=== PATIENT | female | born 1970 | race Caucasian/White ===

== ENCOUNTER → 2021-07-20 | Outpatient (CLI) | payer BC | LOC: RAD 14:45 | PROVIDERS: ATTEND Internal Medicine | DX: Z12.31 Encounter for screening mammogram for malignant neoplasm of breast (principal) | CPT/HCPCS: 77063; 77067 ==

== ENCOUNTER → 2021-12-19 | Outpatient (CLI) | payer BC ==
--- NOTE | 2021-12-19 10:12 | Diagnostic Imaging Report ---
EXAMINATION: US Abdomen complete. TECHNIQUE: Multiple real-time grayscale images were obtained over the right upper quadrant in various projections. HISTORY: GENERALIZED ABD PAIN COMPARISON: None available. FINDINGS: Pancreas: The pancreas is nonvisualized secondary to overlying bowel gas. Liver: The liver is normal in echogenicity and contour. No focal lesions are seen. The portal vein is patent with hepatopetal flow. Gallbladder and biliary tree: Gallbladder is normal without wall thickening, pericholecystic fluid, or sonographic Richter sign. There is no biliary ductal dilation. The common duct measures 0.6 cm. Kidneys: The right kidney is normal without hydronephrosis. The left kidney is normal without hydronephrosis. Spleen: The spleen is normal. Aorta and IVC: The visualized aorta and inferior vena cava are normal. Fluid: No ascites is seen. IMPRESSION: 1. Unremarkable abdominal ultrasound. Dictated by: Dictated on workstation # [id number]
== END ==
LOC: RAD 09:00
PROVIDERS: ATTEND Internal Medicine
DX: R10.84 Generalized abdominal pain (principal)
CPT/HCPCS: 76700

== ENCOUNTER → 2022-01-03 | Outpatient (CLI) | payer BC ==
--- NOTE | 2022-01-03 18:48 | Diagnostic Imaging Report ---
INDICATION: Abdominal pain. EXAMINATION: Patient was administered 5.1 mCi technetium 99m Choletec and imaging over the abdomen was performed. FINDINGS: At 45 minutes 8 ounces of Ensure was ingested and gallbladder ejection fraction was calculated. Patient denied discomfort during the study. There is homogeneous uptake of activity by the liver with prompt excretion of activity into the common duct and gallbladder. There is normal passage of activity into the small bowel. Gallbladder ejection fraction is normal at 64%. IMPRESSION: Normal HIDA scan and gallbladder ejection fraction. Dictated by: Dictated on workstation # [id number]
== END ==
LOC: CARD 11:33
PROVIDERS: ATTEND Internal Medicine
DX: R10.84 Generalized abdominal pain (principal)
CPT/HCPCS: 78227; A9537

== ENCOUNTER → 2022-07-22 | Outpatient (CLI) | payer BC ==
--- NOTE | 2022-07-23 19:01 | Diagnostic Imaging Report ---
Indication: Routine screening. Comparison is made with prior mammograms from 07/20/2021 and 07/17/2020. 2-D and 3-D bilateral screening mammography was performed with CAD. Both breasts are heterogeneously dense, limiting the sensitivity of mammography. The parenchymal pattern appears to be stable. There are scattered benign calcifications. No spiculated mass or malignant-appearing microcalcifications are seen. Axillae are unremarkable. IMPRESSION: BI-RADS Category 2 No mammographic features suspicious for malignancy are identified. ACR BI-RADS Category 2: Benign findings. Result letter will be mailed to the patient. Note: At least 10% of breast cancer is not imaged by mammography. Dictated by: Dictated on workstation # [id number]
== END ==
LOC: RAD 14:30
PROVIDERS: ATTEND Internal Medicine
DX: Z12.31 Encounter for screening mammogram for malignant neoplasm of breast (principal)
CPT/HCPCS: 77063; 77067

== ENCOUNTER 2022-10-15 08:08 | Inpatient (IN) | payer BC ==
[~2022-10-15] VITALS: Ht 175.3 cm; Wt 119.0 kg
[~2022-10-15 08:08] MED LIST: ACETAMINOPHEN 325 MG TABLET PO PRN; ANTACID SUSP 30 ML UDC (MYLANTA) PO PRN; BISACODYL 10 MG SUPPOSITORY PR PRN; CALCIUM CARBONATE 500 MG CHEW TABLET PO PRN; ENOXAPARIN 40 MG/0.4 ML (LOVENOX) SYR SC SCH; HYDROmorphone 2 MG/ML VIAL (DILAUDID) IV PRN; LACTULOSE SYRUP 10GM/15ML (ENULOSE) 30ML UDC PO PRN; MELATONIN 3 MG TABLET PO PRN; MILK OF MAGNESIA 400 MG/5 ML 30 ML UDC PO PRN; ONDANSETRON 4 MG (ZOFRAN) ORAL DISSOLVE TAB PO PRN; ONDANSETRON 4 MG/2 ML (SDV) Z0FRAN IV PRN; PHARMACY TO DOSE IV SCH; PIPERACILLIN SODIUM/TAZOBACTAM 4.5 GM in NS (IVPB) 100 ML 100 ML IV ONE; diphenhydrAMINE 25 MG TAB (BENADRYL) PO PRN; diphenhydrAMINE 50 MG/ML INJ (BENADRYL) IVP PRN; guaiFENesin/CODEINE (ROBITUSSIN AC) 10ML UDC PO PRN; polyethylene glycoL POWDER 17 GM (MIRALAX) PACK PO PRN
[2022-10-15 08:23] VITALS: BP 138/67
[2022-10-15] MEDS ORDERED: HOLD METFORMIN - RECEIVED CONTRAST 20 ML VIAL IV SCH (09:15)
[2022-10-15] MEDS ORDERED: IOHEXOL 350 MG/ML 100 ML (OMNIPAQUE 350) VIAL IV ONE (09:15)
[2022-10-15] MEDS ORDERED: NS 100 ML (IVPB) BAG IV ONE (09:15)
[2022-10-15] MEDS: BENZONATATE 100 MG CAPSULE PO SCH ×3 (09:45→21:09)
[2022-10-15] MEDS: DOCUSATE SODIUM 100 MG (COLACE) CAP PO SCH ×2 (09:46→21:02)
[2022-10-15] MEDS: SENNOSIDES 8.6 MG (SENOKOT) TAB PO SCH ×2 (09:46→21:02)
[2022-10-15] MEDS: NS IV 1000 ML 1,000 ML IV SCH (09:49)
[2022-10-15 09:56] LABS: BASOPHILS % (AUTO) 0 % (0-10); EOSINOPHILS # (AUTO) 0.2 10^3/uL (0.0-0.3); EOSINOPHILS % (AUTO) 2 % (0-10); HEMATOCRIT 41 % (35-52); HEMOGLOBIN 13.9 g/dL (11.5-16.0); LYMPHOCYTES # (AUTO) 2.3 10^3/uL (1.0-4.0); LYMPHOCYTES % (AUTO) 21 % (12-44); MEAN CORPUSCULAR HEMOGLOBIN 30 pg (25-34); MEAN CORPUSCULAR HGB CONC 34 g/dL (32-36); MEAN CORPUSCULAR VOLUME 88 fL (80-99); MEAN PLATELET VOLUME 10.3 fL (9.0-12.2); MONOCYTES # (AUTO) 0.8 10^3/uL (0.0-1.0); MONOCYTES % (AUTO) 8 % (0-12); NEUTROPHILS # (AUTO) 7.3 10^3/uL (1.8-7.8); NEUTROPHILS % (AUTO) 69 % (42-75); PLATELET COUNT 360 10^3/uL (130-400); WHITE BLOOD COUNT 10.7 10^3/uL (4.3-11.0)
[2022-10-15] MEDS ORDERED: VANCOMYCIN 2000 MG/NS 500 ML IVPB IV NR ×2 (10:00)
[2022-10-15 10:13] LABS: ABG BASE EXCESS 4.9 MMOL/L (-2.5-2.5); ABG OXYGEN SATURATION 87 % (94-100); ABG PCO2 53 MMHG (35-45); ABG PH 7.37 (7.37-7.43); ABG PO2 51 MMHG (79-93); ABG TCO2 31.5 MMOL/L (21.0-31.0)
[2022-10-15 10:14] LABS: ALLENS TEST YES-POS; INSPIRED O2 ROOM AIR; PATIENT TEMP 36.7; VENTILATOR NO
[2022-10-15 10:15] LABS: ALANINE AMINOTRANSFERASE 10 U/L (0-55); ALBUMIN 3.5 GM/DL (3.2-4.5); ALKALINE PHOSPHATASE 65 U/L (40-136); BILIRUBIN,TOTAL 0.4 MG/DL (0.1-1.0); BUN/CREATININE RATIO 14; CARBON DIOXIDE 26 MMOL/L (21-32); CHLORIDE 101 MMOL/L (98-107); GFR ESTIMATED 104; GLUCOSE 91 MG/DL (70-105); POTASSIUM 4.3 MMOL/L (3.6-5.0); SODIUM 136 MMOL/L (135-145); TOTAL PROTEIN 6.2 GM/DL (6.4-8.2)
--- NOTE | 2022-10-15 10:59 | Diagnostic Imaging Report ---
Indication: Cough, shortness of breath Portable chest obtained at 0903 a.m. Comparison is made to ' 10/10/2022 Heart is normal in size. Mediastinal silhouette is unremarkable. There are chronic appearing increased interstitial markings. There is no acute consolidation or pneumothorax or pleural fluid. Impression: No acute process in the chest. Dictated by: Dictated on workstation # [id number]
[2022-10-15] MEDS ORDERED: PIPERACILLIN SODIUM/TAZOBACTAM 4.5 GM in NS (IVPB) 100 ML 100 ML IV NR (11:00)
--- NOTE | 2022-10-15 11:13 | Diagnostic Imaging Report ---
INDICATION: Shortness of breath. TECHNIQUE: Multiple contiguous axial images were obtained through the chest after uneventful bolus administration of intravenous contrast. 3D reconstructed CTA MIP acquisitions were also performed. Auto Exposure Controls were utilized during the CT exam to meet ALARA standards for radiation dose reduction. COMPARISON: There is no prior CTA for comparison. FINDINGS: The thoracic aorta shows no evidence of aneurysm or dissection. Great vessel origins are patent and without stenosis. Pulmonary parenchymal vessels are well opacified with no CT evidence of pulmonary emboli. There are no enlarged mediastinal nodes. There are some borderline-sized nodes in the right hilum, the largest measured about 1.3 cm. There is no pleural or pericardial fluid. Visualized portions of the upper abdomen were unremarkable. Lung parenchymal windows demonstrate some peribronchial thickening. There are tree-in-bud infiltrates visualized in the right lower lobe as well as a small focal area of consolidation. There is a nodular density in the right lower lobe measuring about 6 to 7 mm, best seen on image 79 of series 3. There is an area of consolidation in the right lower lobe more inferiorly. IMPRESSION: No CT evidence of pulmonary emboli or acute aortic pathology. No significant pleural fluid. Borderline-sized node in right hilum. There are tree-in-bud or micronodular infiltrates in the right lower lobe with some patchy infiltrates also seen in the left lower lobe. There is a small area of consolidation in the right lower lobe posteriorly. There is a 7 mm nodule in the right lower lobe, it is not clear if this is part of the same infectious process or a separate process. Would recommend follow-up per Fleischner criteria, with a follow-up CT in six months to ensure this resolves. Dictated by: Dictated on workstation # [id number]
[2022-10-15 11:25] VITALS: BP 144/86
[2022-10-15] MEDS: inSUlin ASPART (NovoLOG) 1 UNIT/0.01 ML (CHARGE PER UNIT) SC SCH ×3 (11:48→20:46)
[2022-10-15] MEDS: ENOXAPARIN 40 MG/0.4 ML (LOVENOX) SYR SC SCH (12:17)
[2022-10-15] MEDS ORDERED: FAMO20TA3 PO (12:53)
[2022-10-15] MEDS ORDERED: ESOM20CA37 PO (12:53)
[2022-10-15] MEDS ORDERED: BUPR-105 PO (12:53)
[2022-10-15] MEDS ORDERED: TRAZ150T72 PO (12:53)
[2022-10-15] MEDS ORDERED: ESCI20TA39 PO (12:53)
[2022-10-15] MEDS ORDERED: PREG100C55 PO (12:53)
[2022-10-15] MEDS ORDERED: CEFD300C3 PO (12:53)
[2022-10-15] MEDS ORDERED: LACT1CAP39 PO (12:53)
[2022-10-15] MEDS ORDERED: FLUC100T10 PO (12:53)
[2022-10-15] MEDS ORDERED: EST5V5 IM (12:53)
[2022-10-15] MEDS ORDERED: CNC1KV IM (12:53)
[2022-10-15] MEDS ORDERED: LOPE2TAB34 PO (12:53)
[2022-10-15] MEDS ORDERED: ONDA-106 PO (12:53)
[2022-10-15] MEDS ORDERED: METH-732 PO (12:53)
[2022-10-15] MEDS ORDERED: GABA800T10 PO (12:53)
--- NOTE | 2022-10-15 12:55 | History & Physical ---
SURINDER SANCHEZ 10/15/22 1255: History of Present Illness History of Present Illness Reason for visit/HPI Kanchan Loera is a 52yo F with past medical history of prediabetes, GERD, short bowel syndrome s/p right hemicolectomy, and depression who presents as a direct admission from Dr Mejia's clinic. She has a two week history of fever/chills, night sweats, shortness of breath, and cough. She has also experienced some mild nausea with one reported episode of emesis. Her and her do not recall being around any sick contacts. She took amoxicillin for [address] Mejia in clinic and being switched to cefdinir. She reports some mild improvement in her symptoms since starting the cefdinir. She had an xray as an outpatient last which showed 5 lobe interstitial opacities which will require further workup. Her cough is present during my interview and is productive of some light colored sputum. She does not have conversational dyspnea but has noted some shortness of breath over the last two weeks. Her fever has been under control since switching abx. She feels fatigued. Denies N/V today. Has chronic diarrhea related to short bowel syndrome from her R hemicolectomy. Denies any chest pain/ palpitations. Denies any peripheral edema. Date of Admission Oct 15, 2022 at 08:08 Date Seen by a Provider: Oct 15, 2022 Time Seen by a Provider: 09:20 I consulted on this patient on 10/15/22 12:40 Attending Physician Heather Mejia DO Admitting Physician Admitting Physician: Heather Mejia DO Attending Physician: Heather Mejia DO Consult Allergies and Home Medications Allergies Coded Allergies: NSAIDS (Non-Steroidal Anti-Inflamma (Verified Allergy, Unknown, 10/14/22) Patient Home Medication List Home Medication List Reviewed: Yes Bupropion HCl (Bupropion HCl Sr) 150 Mg Tablet.er, 150 MG PO BID, (Reported) Entered as Reported by: NIRMAL BEASLEY on 10/15/221252 Last Action: Continued Cefdinir (Cefdinir) 300 Mg Capsule, 300 MG PO BID, (Reported) Entered as Reported by: NIRMAL BEASLEY on 10/15/221252 Last Action: Held Cyanocobalamin (Cyanocobalamin Injection) 1,000 Mcg/Ml Inj, 1 ML IM MONTHLY, (Reported) Entered as Reported by: NIRMAL BEASLEY on 10/15/221252 Last Action: Held Escitalopram Oxalate (Escitalopram Oxalate) 20 Mg Tablet, 20 MG PO DAILY, (Reported) Entered as Reported by: NIRMAL BEASLEY on 10/15/221252 Last Action: Converted Esomeprazole Magnesium (Esomeprazole Magnesium) 20 Mg Capsule.dr, 20 MG PO BID, (Reported) Entered as Reported by: NIRMAL BEASLEY on 10/15/221252 Last Action: Converted Estradiol Cypionate (Depo-Estradiol) 5 Mg/Ml Inj, 1 ML IM MONTHLY, (Reported) Entered as Reported by: NIRMAL BEASLEY on 10/15/221252 Last Action: Held Famotidine (Acid Steel Fabricating Supervisor (FAMOTIDINE)) 20 Mg Tablet, 20 MG PO BID, (Reported) Entered as Reported by: NIRMAL BEASLEY on 10/15/221252 Last Action: Continued Fluconazole (Fluconazole) 100 Mg Tablet, 100 MG PO Q48H, (Reported) Entered as Reported by: NIRMAL BEASLEY on 10/15/221252 Last Action: Continued Gabapentin (Gabapentin) 800 Mg Tablet, 800 MG PO 1800,2200, (Reported) Entered as Reported by: NIRMAL BEASLEY on 10/15/221252 Last Action: Converted Lactobacillus Rhamnosus GG (Culturelle) 10 Billion Cell Capsule, 1 EACH PO BID, (Reported) Entered as Reported by: NIRMAL BEASLEY on 10/15/221252 Last Action: Converted Loperamide HCl (Loperamide) 2 Mg Tablet, Unknown Dose PO DAILY, (Reported) Entered as Reported by: NIRMAL BEASLEY on 10/15/221252 Last Action: Converted Methocarbamol (Methocarbamol) 750 Mg Tablet, 750 MG PO Q4H PRN for SPASMS, (Reported) Entered as Reported by: NIRMAL BEASLEY on 10/15/221252 Last Action: Continued Ondansetron HCl (Ondansetron HCl) 8 Mg Tablet, 8 MG PO Q8H PRN for NAUSEA/VOMITING-1ST LINE, (Reported) Entered as Reported by: NIRMAL BEASLEY on 10/15/221252 Last Action: Converted Pregabalin (Pregabalin) 100 Mg Capsule, 100 MG PO TID, (Reported) Entered as Reported by: NIRMAL BEASLEY on 10/15/22 125 Last Action: Continued Trazodone HCl (Trazodone HCl) 150 Mg Tablet, 300 MG PO HS, (Reported) Entered as Reported by: NIRMAL BEASLEY on 10/15/221252 Last Action: Continued Past Lmozgtn-Nnixmq-Lxeofm Hx Patient Social History Marrital Status: Tobacco Use?: No Smoking Status: Never a Smoker Smokeless Tobacco Frequency: Never a User Substance use?: No Alcohol Use?: No Pt feels they are or have been: No Current Status status: No status: No Advance Directives: Yes Communicates: Verbally Primary Language: Grenadian Preferred Spoken Language: Grenadian Is interpretation needed?: No Implanted or Applied Medical D: None Past Medical History Surgeries: Abdominal (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 and abscess formation), Hysterectomy, Tonsillectomy Chronic Diarrhea, Polyps (gastric polyps) Depression depression Family Medical History Heart Disease (a fib in mother), Hypertension, Other Conditions/Hx (father had parkinsons) Review of Systems Constitutional: chills, fever, weakness, weight loss EENTM: throat pain (improved); No hearing loss, No vision loss Respiratory: cough; No hemoptysis; short of breath; No wheezing Cardiovascular: No chest pain, No palpitations Gastrointestinal: No abdominal pain; diarrhea; No nausea, No vomiting Genitourinary: No dysuria, No hematuria Skin: No change in color Psychiatric/Neurological: Denies Headache, Denies Pre-Existing Deficit, Denies Tremors Physical Exam Vital Signs Vital Signs - First Documented 10/15/22 08:23 Temp 36.7 Pulse 86 Resp 18 B/P (MAP) 138/67 (90) Pulse Ox 91 O2 Delivery Nasal Cannula Capillary Refill : Height, Weight, BMI Height: '" Weight: lbs. oz. kg; 38.72 BMI Method: General Appearance: No Apparent Distress, WD/WN, Obese HEENT: PERRL/EOMI, Moist Mucous Membranes Neck: Supple; No JVD Respiratory: No Accessory Muscle Use, No Respiratory Distress, Crackles, Other (diffuse coarse breath sounds worse on R) Cardiovascular: Regular Rate, Rhythm, Normal Peripheral Pulses Gastrointestinal: Non Tender, Soft; No Distended Rectal: Deferred Extremity: Non Tender, No Pedal Edema Neurologic/Psychiatric: Alert, Oriented x3, Normal Mood/Affect Skin: Normal Color, Warm/Dry Assessment/Plan Assessment and Plan Acute hypoxic respiratory failure Fever Dyspnea Probable Pneumonia Productive cough CXR 10/10 showed 5 lobe interstitial opacities with no focal consolidation concerning for failure vs acute respiratory disease Recently treated with amoxicillin then cefdinir for presumed CAP Lactic acid normal at 0.64 WBC count normal at 10.7 afebrile since admission D dimer within normal limit CTA showed 7mm nodule in R lung with tree-in-bud infilitrates in the R lower lobe and small consolidation in the R lower lobe posteriorly. No evidence of PE. Fleishner criteria recommend follow up CT in 6 months for nodule BNP and troponins within normal limit Echo ordered for today- pending ABG showed compensated respiratory acidosis with elevated CO2 and HCO3. Hypoxic as well with O2 at 51 O2 saturation in mid 90s on room air, supplement via nasal cannula if needed Hx of PHIL but does not wear CPAP due to discomfort Started on vancomycin 2gm IV daily and zosyn 4.5gm IV q8hr for empiric coverage Blood and sputum cultures pending Flu A, Flu B, and covid panel pending Benzonatate for cough Decadron 4mg q12hr Albuterol TID continue singulair 10mg daily continue IV fluids Consult pulm appreciate recs S/P R hemicolectomy Short bowel syndrome regular diet as tolerated electrolytes wnl continue IVF Diet- regular DVT ppx- lovenox Code status- full HEATHER MEJIA DO 10/16/22 0536: Allergies and Home Medications Allergies Coded Allergies: NSAIDS (Non-Steroidal Anti-Inflamma (Verified Allergy, Unknown, 10/14/22) Patient Home Medication List Bupropion HCl (Bupropion HCl Sr) 150 Mg Tablet.er, 150 MG PO BID, (Reported) Entered as Reported by: NIRMAL BEASLEY on 10/15/221252 Last Action: Continued Cefdinir (Cefdinir) 300 Mg Capsule, 300 MG PO BID, (Reported) Entered as Reported by: NIRMAL BEASLEY on 10/15/221252 Last Action: Held Cyanocobalamin (Cyanocobalamin Injection) 1,000 Mcg/Ml Inj, 1 ML IM MONTHLY, (Reported) Entered as Reported by: NIRMAL BEASLEY on 10/15/221252 Last Action: Held Escitalopram Oxalate (Escitalopram Oxalate) 20 Mg Tablet, 20 MG PO DAILY, (Reported) Entered as Reported by: NIRMAL BEASLEY on 10/15/221252 Last Action: Converted Esomeprazole Magnesium (Esomeprazole Magnesium) 20 Mg Capsule.dr, 20 MG PO BID, (Reported) Entered as Reported by: NIRMAL BEASLEY on 10/15/221252 Last Action: Converted Estradiol Cypionate (Depo-Estradiol) 5 Mg/Ml Inj, 1 ML IM MONTHLY, (Reported) Entered as Reported by: NIRMAL BEASLEY on 10/15/221252 Last Action: Held Famotidine (Acid Steel Fabricating Supervisor (FAMOTIDINE)) 20 Mg Tablet, 20 MG PO BID, (Reported) Entered as Reported by: NIRMAL BEASLEY on 10/15/221252 Last Action: Continued Fluconazole (Fluconazole) 100 Mg Tablet, 100 MG PO Q48H, (Reported) Entered as Reported by: NIRMAL BEASLEY on 10/15/221252 Last Action: Continued Gabapentin (Gabapentin) 800 Mg Tablet, 800 MG PO 1800,2200, (Reported) Entered as Reported by: NIRMAL BEASLEY on 10/15/221252 Last Action: Converted Lactobacillus Rhamnosus GG (Culturelle) 10 Billion Cell Capsule, 1 EACH PO BID, (Reported) Entered as Reported by: NIRMAL BEASLEY on 10/15/221252 Last Action: Converted Loperamide HCl (Loperamide) 2 Mg Tablet, Unknown Dose PO DAILY, (Reported) Entered as Reported by: NIRMAL BEASLEY on 10/15/221252 Last Action: Converted Methocarbamol (Methocarbamol) 750 Mg Tablet, 750 MG PO Q4H PRN for SPASMS, (Reported) Entered as Reported by: NIRMAL BEASLEY on 10/15/221252 Last Action: Continued Ondansetron HCl (Ondansetron HCl) 8 Mg Tablet, 8 MG PO Q8H PRN for NAUSEA/VOMITING-1ST LINE, (Reported) Entered as Reported by: NIRMAL BEASLEY on 10/15/221252 Last Action: Converted Pregabalin (Pregabalin) 100 Mg Capsule, 100 MG PO TID, (Reported) Entered as Reported by: NIRMAL BEASLEY on 10/15/221252 Last Action: Continued Trazodone HCl (Trazodone HCl) 150 Mg Tablet, 300 MG PO HS, (Reported) Entered as Reported by: NIRMAL BEASLEY on 10/15/22 1253 Last Action: Continued Assessment/Plan Assessment and Plan Problems: (1) Pulmonary infiltrates Admission Diagnosis Admission Status: Observation Supervisory-Addendum Brief Verification & Attestation Participated in pt care: history, MDM, physical Personally performed: exam, history, MDM, supervision of care Care discussed with: Medical Student Procedures: n/a Results interpretation: Verified all documentation Verification and Attestation of Medical Student E/M Service A medical student performed and documented this service in my presence. I reviewed and verified all information documented by the medical student and made modifications to such information, when appropriate. I personally performed the physical exam and medical decision making. Heather Mejia, Oct 16, 2022,05:36 SURINDER SANCHEZ Oct 15, 2022 12:55 HEATHER MEJIA DO Oct 16, 2022 05:36
[2022-10-15] MEDS: RT-ALBUTEROL SULF 2.5 MG/3 ML PRE-MIX VIAL INH SCH ×2 (15:20→21:20)
[2022-10-15 15:26] VITALS: BP 130/63
[2022-10-15] MEDS: PIPERACILLIN SODIUM/TAZOBACTAM 4.5 GM in NS (IVPB) 100 ML 100 ML IV SCH (16:05)
[2022-10-15 19:50] VITALS: BP 127/61
[2022-10-15] MEDS ORDERED: fluCOnazole (DIFLUCAN) 100 MG TAB PO SCH (20:45)
[2022-10-15] MEDS ORDERED: LOPERAMIDE 2 MG (IMODIUM) TABLET PO PRN (20:45)
[2022-10-15] MEDS ORDERED: METHOCARBAMOL 750 MG (ROBAXIN) TAB PO PRN (20:45)
[2022-10-15] MEDS ORDERED: traZODone 150 MG (DESYREL) TABLET PO SCH (21:00)
[2022-10-15] MEDS ORDERED: buPROPion SR 150 MG TABLET PO SCH (21:00)
[2022-10-15] MEDS ORDERED: FAMOTIDINE 20 MG (PEPCID) TABLET PO SCH (21:00)
[2022-10-15] MEDS: MONTELUKAST 10 MG (SINGULAIR) TAB PO SCH ×2 (21:09→21:15)
[2022-10-15] MEDS: PREGABALIN 100 MG (LYRICA) CAPSULE PO SCH (21:11)
[2022-10-15] MEDS: GABAPENTIN 400 MG (NEURONTIN) CAP PO SCH (21:15)
[2022-10-15] MEDS ORDERED: ONDANSETRON 4 MG (ZOFRAN) ORAL DISSOLVE TAB PO PRN (22:00)
[2022-10-15] MEDS: VANCOMYCIN 1500MG/300ML PREMIX IV SCH (22:08)
[2022-10-15 23:25] VITALS: BP 118/72
[2022-10-16] MEDS: NS IV 1000 ML 1,000 ML IV SCH (01:38)
[2022-10-16] MEDS: PIPERACILLIN SODIUM/TAZOBACTAM 4.5 GM in NS (IVPB) 100 ML 100 ML IV SCH ×3 (01:39→16:12)
[2022-10-16 03:10] VITALS: BP 134/81
[2022-10-16] MEDS: inSUlin ASPART (NovoLOG) 1 UNIT/0.01 ML (CHARGE PER UNIT) SC SCH ×4 (06:14→20:41)
[2022-10-16 06:22] LABS: BASOPHILS % (AUTO) 0 % (0-10); EOSINOPHILS % (AUTO) 0 % (0-10); HEMATOCRIT 39 % (35-52); HEMOGLOBIN 13.2 g/dL (11.5-16.0); LYMPHOCYTES # (AUTO) 1.1 10^3/uL (1.0-4.0); LYMPHOCYTES % (AUTO) 12 % (12-44); MEAN CORPUSCULAR HEMOGLOBIN 30 pg (25-34); MEAN CORPUSCULAR HGB CONC 34 g/dL (32-36); MEAN CORPUSCULAR VOLUME 89 fL (80-99); MEAN PLATELET VOLUME 10.9 fL (9.0-12.2); MONOCYTES # (AUTO) 0.2 10^3/uL (0.0-1.0); MONOCYTES % (AUTO) 2 % (0-12); NEUTROPHILS % (AUTO) 86 % (42-75); PLATELET COUNT 348 10^3/uL (130-400); WHITE BLOOD COUNT 9.3 10^3/uL (4.3-11.0)
[2022-10-16 06:37] LABS: ALBUMIN 3.4 GM/DL (3.2-4.5); POTASSIUM 4.8 MMOL/L (3.6-5.0)
[2022-10-16 06:39] LABS: CALCIUM 8.8 MG/DL (8.5-10.1)
[2022-10-16 06:42] LABS: BILIRUBIN,TOTAL 0.3 MG/DL (0.1-1.0)
[2022-10-16 06:43] LABS: CREATININE SERUM 0.63 MG/DL (0.60-1.30)
[2022-10-16] MEDS ORDERED: PATIENT MAY USE OWN MEDS, ALL MC SCH (07:00)
[2022-10-16] MEDS ORDERED: PANTOPRAZOLE 20 MG TABLET (PROTONIX) PO SCH (07:00)
[2022-10-16] MEDS: RT-ALBUTEROL SULF 2.5 MG/3 ML PRE-MIX VIAL INH SCH ×3 (07:55→21:15)
[2022-10-16 08:00] VITALS: BP 139/74
[2022-10-16] MEDS ORDERED: Lactobacillus Rhamnosus GG (CULTURELLE) packet PO SCH (08:00)
[2022-10-16] MEDS: DOCUSATE SODIUM 100 MG (COLACE) CAP PO SCH ×2 (08:42→20:46)
[2022-10-16] MEDS: BENZONATATE 100 MG CAPSULE PO SCH ×3 (08:42→20:41)
[2022-10-16] MEDS: SENNOSIDES 8.6 MG (SENOKOT) TAB PO SCH ×2 (08:42→20:46)
[2022-10-16] MEDS: PREGABALIN 100 MG (LYRICA) CAPSULE PO SCH ×4 (08:43→20:54)
[2022-10-16] MEDS: FAMOTIDINE 20 MG (PEPCID) TABLET PO SCH ×2 (08:44→20:45)
[2022-10-16] MEDS ORDERED: ONDANSETRON 8 MG PO PRN (08:45)
[2022-10-16] MEDS ORDERED: ESCITALOPRAM 20MG TABLET PO SCH (09:00)
[2022-10-16] MEDS: buPROPion SR 150 MG TABLET PO SCH ×2 (09:10→20:46)
[2022-10-16] MEDS: ESCITALOPRAM 20MG TABLET PO SCH (09:11)
[2022-10-16] MEDS: VANCOMYCIN 1500MG/300ML PREMIX IV SCH ×2 (09:40→22:10)
--- NOTE | 2022-10-16 10:02 | Progress Note ---
SURINDER SACNHEZ 10/16/22 1002: Subjective Date Seen by a Provider: Oct 16, 2022 Time Seen by a Provider: 09:57 Subjective/Events-last exam Patient seen and examined at bedside. She is sitting up in bed comfortably. She reports feeling much better today. She still has intermittent cough but is produ cing less sputum and is less frequent. She denies any fever, chills, or night sweats. She denies any pain besides chronic knee pain associated with arthritis. She is on 4L by nasal cannula and denies shortness of breath. Does not wear O2 at home. Has had diarrhea in the hospital that is consistent with her short bowel syndrome related to R hemicolectomy, no changes. Denies any chest pain or palpitations. Review of Systems General: No Chills, No Night Sweats HEENT: No Head Aches, No Visual Changes Pulmonary: Dyspnea (improved), Cough (improved); No Pleuritic Chest Pain Cardiovascular: No: Chest Pain, Palpitations Gastrointestinal: Diarrhea; No: Nausea, Vomiting, Abdominal Pain Genitourinary: No Dysuria, No Hematuria Musculoskeletal: leg pain Neurological: No: Weakness, Change in speech, Confusion Focused Exam Lactate Level 10/15/22 10:55: Lactic Acid Level 0.64 Objective Exam Last Set of Vital Signs Vital Signs Date Time Temp Pulse Resp B/P (MAP) Pulse Ox O2 Delivery O2 Flow Rate FiO2 10/16/22 08:11 97 Nasal Cannula 4.00 10/16/22 08:00 36.0 66 20 139/74 (95) Capillary Refill : I&O Intake and Output 10/16/22 00:00 Intake Total 1800 ml Balance 1800 ml Intake Oral 1800 ml # Voids 8 # Bowel Movements 1 Daily Weight Change Yes, 2-13 lbs General: Alert, Oriented X3, Cooperative HEENT: Atraumatic, EOMI Neck: Supple, No JVD Lungs: Other (Coarse sounds bilaterally, worse on R. Improved somewhat since yesterday's exam) Heart: Regular Rate, Normal S1, Normal S2 Abdomen: Soft, No Tenderness Extremities: No Cyanosis, No Edema Neuro: Normal Speech Psych/Mental Status: Mental Status NL, Mood NL Results Lab Laboratory Tests 10/15/22 10:10: Blood Gas Puncture Site RT RAD, Blood Gas Patient Temperature 36.7, Arterial Blood pH 7.37, Arterial Blood Partial Pressure CO2 53H, Arterial Blood Partial Pressure O2 51L, Arterial Blood HCO3 30H, Arterial Blood Total CO2 31.5H, Arterial Blood Oxygen Saturation 87L, Arterial Blood Base Excess 4.9H, Kamar Test YES-POS, Blood Gas Ventilator Setting NO, Blood Gas Inspired Oxygen ROOM AIR 10/15/22 10:55: Lactic Acid Level 0.64 10/15/22 11:29: Glucometer 103 10/15/22 11:30: Influenza Type A (RT-PCR) Not Detected, Influenza Type B (RT-PCR) Not Detected, SARS-CoV-2 RNA (RT-PCR) Not Detected 10/15/22 15:38: Glucometer 156H 10/15/22 20:02: Glucometer 149H 10/16/22 05:30: White Blood Count 9.3, Red Blood Count 4.38, Hemoglobin 13.2, Hematocrit 39, Mean Corpuscular Volume 89, Mean Corpuscular Hemoglobin 30, Mean Corpuscular Hemoglobin Concent 34, Red Cell Distribution Width 12.6, Platelet Count 348, Mean Platelet Volume 10.9, Immature Granulocyte % (Auto) 1, Neutrophils (%) (Auto) 86H, Lymphocytes (%) (Auto) 12, Monocytes (%) (Auto) 2, Eosinophils (%) (Auto) 0, Basophils (%) (Auto) 0, Neutrophils # (Auto) 8.0H, Lymphocytes # (Auto) 1.1, Monocytes # (Auto) 0.2, Eosinophils # (Auto) 0.0, Basophils # (Auto) 0.0, Immature Granulocyte # (Auto) 0.1, Sodium Level 140, Potassium Level 4.8, Chloride Level 107, Carbon Dioxide Level 24, Anion Gap 9, Blood Urea Nitrogen 7, Creatinine 0.63, Estimat Glomerular Filtration Rate 107, BUN/Creatinine Ratio 11, Glucose Level 145H, Calcium Level 8.8, Corrected Calcium 9.3, Total Bilirubin 0.3, Aspartate Amino Transf (AST/SGOT) 12, Alanine Aminotransferase (ALT/SGPT) 11, Alkaline Phosphatase 65, Total Protein 6.0L, Albumin 3.4 10/16/22 05:58: Glucometer 137H Microbiology 10/15/22 MRSA Screen - Final, Complete MRSA not isolated Assessment/Plan Assessment/Plan Assess & Plan/Chief Complaint Acute hypoxic respiratory failure Fever Dyspnea Probable Pneumonia Productive cough CXR 10/10 showed 5 lobe interstitial opacities with no focal consolidation concerning for failure vs acute respiratory disease Repeat CXR today Recently treated with amoxicillin then cefdinir for presumed CAP Lactic acid normal at 0.64 WBC count normal at 9.3 afebrile since admission D dimer within normal limit CTA showed 7mm nodule in R lung with tree-in-bud infilitrates in the R lower lobe and small consolidation in the R lower lobe posteriorly. No evidence of PE. Fleischner criteria recommend follow up CT in 6 months for nodule BNP and troponins within normal limit Echocardiogram revealed LV EF of 55-60% with L atrial dilation and pulmonary artery pressure of 25-30 ABG showed compensated respiratory acidosis with elevated CO2 and HCO3. Hypoxic as well with O2 at 51 O2 saturation in mid 90s on 4L by nasal cannula, wean as tolerated. Does not use O2 at home Hx of PHIL but does not wear CPAP due to discomfort Started on vancomycin 2gm IV daily and zosyn 4.5gm IV q8hr for empiric coverage Pharmacy dosed vancomycin at 1500mg q12hr IV, trough pending Blood and sputum cultures pending Sputum showed presence of WBCs but no bacteria identified Flu A, Flu B, and covid panel negative Benzonatate for cough Decadron 4mg q12hr Albuterol TID continue singulair 10mg daily Consult pulm appreciate recs Will do overnight continuous pulse ox as well as home O2 evaluation Mycoplasma abs pending for atypical pneumonia Repeat ABG S/P R hemicolectomy Short bowel syndrome regular diet as tolerated electrolytes wnl Diet- regular DVT ppx- lovenox Code status- full Clinical Quality Measures Admission Status Admission Dx Acute hypoxic respiratory failure Fever Dyspnea Probable Pneumonia Productive cough CXR 10/10 showed 5 lobe interstitial opacities with no focal consolidation concerning for failure vs acute respiratory disease Recently treated with amoxicillin then cefdinir for presumed CAP Lactic acid normal at 0.64 WBC count normal at 10.7 afebrile since admission D dimer within normal limit CTA showed 7mm nodule in R lung with tree-in-bud infilitrates in the R lower lobe and small consolidation in the R lower lobe posteriorly. No evidence of PE. Fleishner criteria recommend follow up CT in 6 months for nodule BNP and troponins within normal limit Echo ordered for today- pending ABG showed compensated respiratory acidosis with elevated CO2 and HCO3. Hypoxic as well with O2 at 51 O2 saturation in mid 90s on room air, supplement via nasal cannula if needed Hx of PHIL but does not wear CPAP due to discomfort Started on vancomycin 2gm IV daily and zosyn 4.5gm IV q8hr for empiric coverage Blood and sputum cultures pending Flu A, Flu B, and covid panel pending Benzonatate for cough Decadron 4mg q12hr Albuterol TID continue singulair 10mg daily continue IV fluids Consult pulm appreciate recs S/P R hemicolectomy Short bowel syndrome regular diet as tolerated electrolytes wnl continue IVF Diet- regular DVT ppx- lovenox Code status- full HEATHER MEJIA DO 10/16/224: Supervisory-Addendum Brief Verification & Attestation Participated in pt care: history, MDM, physical Personally performed: exam, history, MDM, supervision of care Care discussed with: Medical Student Procedures: n/a Results interpretation: Verified all documentation Verification and Attestation of Medical Student E/M Service A medical student performed and documented this service in my presence. I reviewed and verified all information documented by the medical student and made modifications to such information, when appropriate. I personally performed the physical exam and medical decision making. Heather Mejia Oct 16, 2022,21:42 SURINDER SANCHEZ Oct 16, 2022 10:02 HEATHER MEJIA DO Oct 16, 2022 21:44
[2022-10-16] MEDS: ENOXAPARIN 40 MG/0.4 ML (LOVENOX) SYR SC SCH (11:10)
[2022-10-16 11:46] VITALS: BP 140/63
--- NOTE | 2022-10-16 13:05 | Diagnostic Imaging Report ---
EXAMINATION: Chest, one view. HISTORY: Pneumonia. COMPARISON: 10/15/2022. FINDINGS: The lungs are clear without edema or pneumonia. No pleural effusion or pneumothorax. Heart size is normal. IMPRESSION: 1. Clear lungs. Dictated by: Dictated on workstation # [id number]
--- NOTE | 2022-10-16 14:23 | Pulmonary Consultation ---
History of Present Illness History of Present Illness Date Seen by Provider: Oct 16, 2022 Time Seen by Provider: 13:36 Date of Admission History of Present Illness (Tele-pulmonary Physician , consultation as per request of PCP Service provided via interactive audio and video telecommunications [employer] system to a patient admitted to [facility]. 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 then seen MD ? omnicef stated and she felt better - no fever , chills better , cough was still present and rhonchi in lungs and hypoxia ? cxr was done and patient was admitted OTHER RESPIRATORY : Negative for sputum, hemoptysis, stridor, nasal congestion, trouble swallowing, PND, cough with PO intake , symptoms of MARCIE CXR and 10/15 -interstitial opacities CT chest tree-in-bud infiltrates / consolidation in the RLL ECHO 10/15/22 -EF WNL , no pulm HTN Inpatient - Started on vancomycin 2gm IV daily and zosyn and steroids IV Dexa 4 q 12 Today AFEBRILE, reports feeling better today A/P Viral syndrome with progression to most likely infection bronchiolitis -CT findings of RLL infiltrate and tree-in bud can be consistent with aspiration, less likely TB given history. Also can be seen with hyper sensitivity pneumonitis - less likely , but can not be r/o. -Agree with current abx -Agree with iv steroids for 2 days - then can titrate down , and start ICS -Monitor for VO , GERD , control cough PRN -Bronchoscopy is not is indicated now -Close f/up Mild CO2 retention on ABG ( possible due to untreated PHIL ) RLL infiltrate to follow with Ct in 3-6 month Discussed with patient the medical regiment, goals, side effects and symptoms. All questions were answered. is in the room for the conversation Plans in collaboration with bedside consultants and IM MDs. Discussed with RN to reach out if any questions or concerns Allergies and Home Medications Allergies Coded Allergies: NSAIDS (Non-Steroidal Anti-Inflamma (Verified Allergy, Unknown, 10/14/22) Home Medications Bupropion HCl 150 Mg Tablet.er, 150 MG PO BID, (Reported) Cefdinir 300 Mg Capsule, 300 MG PO BID, (Reported) FILLED 10-10-2022 #14/ DAY SUPPLY Cyanocobalamin 1,000 Mcg/Ml Inj, 1 ML IM MONTHLY, (Reported) Escitalopram Oxalate 20 Mg Tablet, 20 MG PO DAILY, (Reported) Esomeprazole Magnesium 20 Mg Capsule.dr, 20 MG PO BID, (Reported) Estradiol Cypionate 5 Mg/Ml Inj, 1 ML IM MONTHLY, (Reported) Famotidine 20 Mg Tablet, 20 MG PO BID, (Reported) Fluconazole 100 Mg Tablet, 100 MG PO Q48H, (Reported) FILLED 10-10-2022 #10 DAY SUPPLY Gabapentin 800 Mg Tablet, 800 MG PO 1800,2200, (Reported) Lactobacillus Rhamnosus GG 10 Billion Cell Capsule, 1 EACH PO BID, (Reported) Loperamide HCl 2 Mg Tablet, Unknown Dose PO DAILY, (Reported) TAKES 67 TABS ONCE DAILY Methocarbamol 750 Mg Tablet, 750 MG PO Q4H PRN for SPASMS, (Reported) Ondansetron HCl 8 Mg Tablet, 8 MG PO Q8H PRN for NAUSEA/VOMITING-1ST LINE, (Reported) Pregabalin 100 Mg Capsule, 100 MG PO TID, (Reported) Trazodone HCl 150 Mg Tablet, 300 MG PO HS, (Reported) TAKES 2 (150MG) TABS Past Medical/Social/Family Hx Patient Social History Marrital Status: Tobacco Use?: No Smoking Status: Never a Smoker Smokeless Tobacco Frequency: Never a User Substance use?: No Alcohol Use?: No Pt stated abuse/neglect: No Immunizations Up To Date Influenza Vaccine Up-to-Date: Yes; Up-to-Date Current Status status: No status: No Advance Directives: Yes Communicates: Verbally Primary Language: Ecuadorean Preferred Spoken Language: Ecuadorean Is interpretation needed?: No Implanted or Applied Medical D: None Past Medical History depression Review of Systems Constitutional: see HPI Sepsis Event Evaluation Height, Weight, BMI Height: '" Weight: lbs. oz. kg; 38.72 BMI Method: Exam Exam Patient acknowledged, consented, and participated in this virtual visit which was conducted using real time audio/video Vital Signs Date Time Temp Pulse Resp B/P (MAP) Pulse Ox O2 Delivery O2 Flow Rate FiO2 10/16/22 13:00 73 10/16/22 11:46 36.5 69 22 140/63 (88) 91 Nasal Cannula 2.00 10/16/22 08:11 97 Nasal Cannula 4.00 10/16/22 08:00 36.0 66 20 139/74 (95) 93 Nasal Cannula 4.00 10/16/22 07:55 97 Nasal Cannula 4.00 10/16/22 07:00 65 10/16/22 03:10 36.8 71 16 134/81 (98) 97 Nasal Cannula 4.00 4.00 10/16/22 01:00 72 10/15/22 23:25 36.9 94 16 118/72 (87) 95 Nasal Cannula 4.00 4.00 10/15/22 21:20 92 Nasal Cannula 3.00 10/15/22 20:22 97 Nasal Cannula 4.00 10/15/22 19:50 36.3 98 16 127/61 (83) 95 Nasal Cannula 2.00 10/15/22 19:00 87 10/15/22 15:26 36.3 91 18 130/63 (85) 90 Nasal Cannula 2.00 10/15/22 15:20 97 Room Air I & O 10/16/22 06:59 Intake Total 2150 ml Balance 2150 ml Height & Weight Height: '" Weight: lbs. oz. kg; 38.72 BMI Method: General Appearance: No Apparent Distress, WD/WN, Obese HEENT: PERRL/EOMI, Moist Mucous Membranes Neck: Supple; No JVD Respiratory: No Accessory Muscle Use, No Respiratory Distress, Crackles, Other (diffuse coarse breath sounds worse on R) Cardiovascular: Regular Rate, Rhythm, Normal Peripheral Pulses Extremity: Non Tender, No Pedal Edema Neurologic/Psychiatric: Alert, Oriented x3, Normal Mood/Affect Skin: Normal Color, Warm/Dry Results Lab Laboratory Tests 10/15/22 09:45 7/26/23 05:30 Assessment/Plan Assessment/Plan 1 CALLY WEBER MD Oct 16, 2022 14:23
[2022-10-16] MEDS: ESOMEPRAZOLE 20 MG PO SCH (15:09)
[2022-10-16 15:18] VITALS: BP 130/59
[2022-10-16 15:54] LABS: ABG OXYGEN SATURATION 91 % (94-100); ABG PCO2 44 MMHG (35-45); ABG PH 7.36 (7.37-7.43); ABG PO2 59 MMHG (79-93); ABG TCO2 26.1 MMOL/L (21.0-31.0)
[2022-10-16 15:56] LABS: ALLENS TEST YES-POS; INSPIRED O2 2L; PATIENT TEMP 37; VENTILATOR NO
[2022-10-16] MEDS: CULTURELLE PROBIOTIC PO SCH (18:12)
[2022-10-16] MEDS: GABAPENTIN 400 MG (NEURONTIN) CAP PO SCH ×2 (18:12→22:11)
[2022-10-16 20:03] VITALS: BP 134/67
[2022-10-16] MEDS: MONTELUKAST 10 MG (SINGULAIR) TAB PO SCH (20:41)
[2022-10-16] MEDS ORDERED: TROUGH ORDER-PHARMACY XX NR (21:00)
[2022-10-16] MEDS ORDERED: traZODone 150 MG (DESYREL) TABLET PO SCH (21:00)
[2022-10-16 23:47] VITALS: BP 140/70
[2022-10-17] MEDS: PIPERACILLIN SODIUM/TAZOBACTAM 4.5 GM in NS (IVPB) 100 ML 100 ML IV SCH ×2 (00:06→08:41)
[2022-10-17 03:51] VITALS: BP 133/69
[2022-10-17] MEDS: inSUlin ASPART (NovoLOG) 1 UNIT/0.01 ML (CHARGE PER UNIT) SC SCH ×2 (05:27→11:41)
[2022-10-17] MEDS: ESOMEPRAZOLE 20 MG PO SCH (05:28)
[2022-10-17 06:09] LABS: BASOPHILS % (AUTO) 0 % (0-10); EOSINOPHILS % (AUTO) 0 % (0-10); HEMATOCRIT 39 % (35-52); LYMPHOCYTES # (AUTO) 1.2 10^3/uL (1.0-4.0); LYMPHOCYTES % (AUTO) 11 % (12-44); MEAN CORPUSCULAR HEMOGLOBIN 30 pg (25-34); MEAN CORPUSCULAR HGB CONC 33 g/dL (32-36); MEAN CORPUSCULAR VOLUME 91 fL (80-99); MEAN PLATELET VOLUME 10.8 fL (9.0-12.2); MONOCYTES # (AUTO) 0.4 10^3/uL (0.0-1.0); MONOCYTES % (AUTO) 3 % (0-12); NEUTROPHILS # (AUTO) 9.1 10^3/uL (1.8-7.8); NEUTROPHILS % (AUTO) 85 % (42-75); PLATELET COUNT 328 10^3/uL (130-400); WHITE BLOOD COUNT 10.8 10^3/uL (4.3-11.0)
[2022-10-17 06:24] LABS: ALBUMIN 3.4 GM/DL (3.2-4.5); POTASSIUM 4.5 MMOL/L (3.6-5.0)
[2022-10-17 06:25] LABS: CALCIUM 8.8 MG/DL (8.5-10.1)
[2022-10-17 06:27] LABS: TOTAL PROTEIN 5.9 GM/DL (6.4-8.2)
[2022-10-17 06:28] LABS: BILIRUBIN,TOTAL 0.2 MG/DL (0.1-1.0)
[2022-10-17 06:30] LABS: CREATININE SERUM 0.7 MG/DL (0.60-1.30)
[2022-10-17 08:41] VITALS: BP 149/85
[2022-10-17] MEDS: BENZONATATE 100 MG CAPSULE PO SCH ×2 (08:41→12:55)
[2022-10-17] MEDS: PREGABALIN 100 MG (LYRICA) CAPSULE PO SCH ×2 (08:41→12:58)
[2022-10-17] MEDS: ESCITALOPRAM 20MG TABLET PO SCH (08:42)
[2022-10-17] MEDS: CULTURELLE PROBIOTIC PO SCH (08:42)
[2022-10-17] MEDS: FAMOTIDINE 20 MG (PEPCID) TABLET PO SCH (08:43)
[2022-10-17] MEDS: buPROPion SR 150 MG TABLET PO SCH (08:45)
[2022-10-17] MEDS: DOCUSATE SODIUM 100 MG (COLACE) CAP PO SCH (09:27)
[2022-10-17] MEDS: SENNOSIDES 8.6 MG (SENOKOT) TAB PO SCH (09:28)
[2022-10-17] MEDS: ENOXAPARIN 40 MG/0.4 ML (LOVENOX) SYR SC SCH (11:41)
[2022-10-17] MEDS ORDERED: FLUT1DIS26 IH (11:42)
[2022-10-17] MEDS ORDERED: AMOX1TAB12 PO (11:42)
[2022-10-17] MEDS ORDERED: MONT-40 PO (11:42)
[2022-10-17] MEDS ORDERED: PRED10TA22 PO (11:42)
[2022-10-17] MEDS ORDERED: BENZ100C18 PO (11:42)
--- NOTE | 2022-10-17 11:43 | Discharge Summary ---
Diagnosis/Chief Complaint Date of Admission Oct 16, 2022 at 11:00 Date of Discharge Discharge Date: Oct 17, 2022 Discharge Diagnosis Acute hypoxic hypercapneic respiratory failure Fever Dyspnea Pneumonia failed po abx Productive cough CXR 10/10 showed 5 lobe interstitial opacities with no focal consolidation concerning for failure vs acute respiratory disease Recently treated with amoxicillin then cefdinir for presumed CAP Lactic acid normal at 0.64 WBC count normal at 10.7 afebrile since admission D dimer within normal limit CTA showed 7mm nodule in R lung with tree-in-bud infilitrates in the R lower lobe and small consolidation in the R lower lobe posteriorly. No evidence of PE. Fleishner criteria recommend follow up CT in 6 months for nodule BNP and troponins within normal limit Echo ordered for today- pending ABG showed compensated respiratory acidosis with elevated CO2 and HCO3. Hypoxic as well with O2 at 51 O2 saturation in mid 90s on room air, supplement via nasal cannula if needed Hx of PHIL but does not wear CPAP due to discomfort Started on vancomycin 2gm IV daily and zosyn 4.5gm IV q8hr for empiric coverage Blood and sputum cultures pending Flu A, Flu B, and covid panel pending Benzonatate for cough Decadron 4mg q12hr Albuterol TID continue singulair 10mg daily continue IV fluids Consult pulm appreciate recs S/P R hemicolectomy Short bowel syndrome regular diet as tolerated electrolytes wnl continue IVF Discharge Summary Discharge Physical Examination Allergies: Coded Allergies: NSAIDS (Non-Steroidal Anti-Inflamma (Verified Allergy, Unknown, 10/14/22) Vitals & I&Os Vital Signs Date Time Temp Pulse Resp B/P (MAP) Pulse Ox O2 Delivery O2 Flow Rate FiO2 10/17/22 14:10 36.6 73 19 120/77 93 Room Air 2.00 General Appearance: Alert, Oriented X3, Cooperative Psych/Mental Status: Mental Status NL Hospital Course Was the Problem List Reviewed?: Yes Kanchan Loera is a 52yo F who presented as a direct admission from Dr Mejia's clinic with chief complaint of fever, cough, and shortness of breath for approximately 2 weeks. HPI from admission: "Kanchan Loera is a 52yo F with past medical history of prediabetes, GERD, short bowel syndrome s/p right hemicolectomy, and depression who presents as a direct admission from Dr Mejia's clinic. She has a two week history of fever/chills, night sweats, shortness of breath, and cough. She has also experienced some mild nausea with one reported episode of emesis. Her and her do not recall being around any sick contacts. She took amoxicillin for [address] Mejia in clinic and being switched to cefdinir. She reports some mild improvement in her symptoms since starting the cefdinir. She had an xray as an outpatient last which showed 5 lobe interstitial opacities which will require further workup. Her cough is present during my interview and is productive of some light colored sputum. She does not have conversational dyspnea but has noted some shortness of breath over the last two weeks. Her fever has been under control since switching abx. She feels fatigued. Denies N/V today. Has chronic diarrhea related to short bowel syndrome from her R hemicolectomy. Denies any chest pain/ palpitations. Denies any peripheral edema." She was found to have acute hypoxic respiratory failure and required oxygen supplementation via nasal cannula. A recent CXR prior to admission showed 5 lobe interstitial opacities with no focal consolidation. She had recently taken abx for presumed community aquired PNA with some minimal improvement of her symptoms. She remained afebrile with normal WBC count throughout her admission. A D dimer was level was normal with CTA showing no evidence of PE. The CTA did show infiltrates and R lower lobe consolidation. She also had a 7mm nodule that will need outpatient CT follow up. An echocardiogram did not reveal any congestive HF causes for her shortness of breath and cough. She was started on IV abx for broad spectrum pneumonia coverage. Blood cultures and sputum cultures were collected but she had already been on abx as an outpatient prior. Sputum grew normal respiratory shadia. She was treated with decadron, albuterol, and a pulm consult was ordered. Viral panel for flu a, flu b, and covid were negative. Mycoplasma titer was sent out and is pending results. She was given lovenox for DVT ppx. ABG showed respiratory acidosis and follow up ABG the following day was improved with less CO2 retention and better oxygen level. A home O2 study was done as well as overnight O2 saturation. She will be discharged 10/17 with close follow up with Dr Mejia as well as a follow up with Dr Moraes who has been managing her PHIL. She will work on finding a solution to her discomfort with CPAP masks as underlying untreated PHIL is likely contributing to her CO2 retention and respiratory disease. She will be weaned off IV steroids and given an inhaled corticosteroid per pulm. SURINDER SANCHEZ Labs (last 24 hrs) Laboratory Tests 10/15/22 09:45: White Blood Count 10.7, Red Blood Count 4.61, Hemoglobin 13.9, Hematocrit 41, Mean Corpuscular Volume 88, Mean Corpuscular Hemoglobin 30, Mean Corpuscular Hemoglobin Concent 34, Red Cell Distribution Width 12.4, Platelet Count 360, Mean Platelet Volume 10.3, Immature Granulocyte % (Auto) 1, Neutrophils (%) (Auto) 69, Lymphocytes (%) (Auto) 21, Monocytes (%) (Auto) 8, Eosinophils (%) (Auto) 2, Basophils (%) (Auto) 0, Neutrophils # (Auto) 7.3, Lymphocytes # (Auto) 2.3, Monocytes # (Auto) 0.8, Eosinophils # (Auto) 0.2, Basophils # (Auto) 0.0, Immature Granulocyte # (Auto) 0.1, D-Dimer 0.32, Sodium Level 136, Potassium Level 4.3, Chloride Level 101, Carbon Dioxide Level 26, Anion Gap 9, Blood Urea Nitrogen 10, Creatinine 0.70, Estimat Glomerular Filtration Rate 104, BUN/Creatinine Ratio 14, Glucose Level 91, Calcium Level 9.0, Corrected Calcium 9.4, Total Bilirubin 0.4, Aspartate Amino Transf (AST/SGOT) 15, Alanine Aminotransferase (ALT/SGPT) 10, Alkaline Phosphatase 65, Troponin I < 0.028, B- Type Natriuretic Peptide 33.6, Total Protein 6.2L, Albumin 3.5 10/15/22 10:10: Blood Gas Puncture Site RT RAD, Blood Gas Patient Temperature 36.7, Arterial Blood pH 7.37, Arterial Blood Partial Pressure CO2 53H, Arterial Blood Partial Pressure O2 51L, Arterial Blood HCO3 30H, Arterial Blood Total CO2 31.5H, Arterial Blood Oxygen Saturation 87L, Arterial Blood Base Excess 4.9H, Kamar Test YES-POS, Blood Gas Ventilator Setting NO, Blood Gas Inspired Oxygen ROOM AIR 10/15/22 10:55: Lactic Acid Level 0.64 10/15/22 11:29: Glucometer 103 10/15/22 11:30: Influenza Type A (RT-PCR) Not Detected, Influenza Type B (RT-PCR) Not Detected, SARS-CoV-2 RNA (RT-PCR) Not Detected 10/15/22 15:38: Glucometer 156H 10/15/22 20:02: Glucometer 149H 10/16/22 05:30: White Blood Count 9.3, Red Blood Count 4.38, Hemoglobin 13.2, Hematocrit 39, Mean Corpuscular Volume 89, Mean Corpuscular Hemoglobin 30, Mean Corpuscular Hemoglobin Concent 34, Red Cell Distribution Width 12.6, Platelet Count 348, Mean Platelet Volume 10.9, Immature Granulocyte % (Auto) 1, Neutrophils (%) (Auto) 86H, Lymphocytes (%) (Auto) 12, Monocytes (%) (Auto) 2, Eosinophils (%) (Auto) 0, Basophils (%) (Auto) 0, Neutrophils # (Auto) 8.0H, Lymphocytes # ( Auto) 1.1, Monocytes # (Auto) 0.2, Eosinophils # (Auto) 0.0, Basophils # (Auto) 0.0, Immature Granulocyte # (Auto) 0.1, Sodium Level 140, Potassium Level 4.8, Chloride Level 107, Carbon Dioxide Level 24, Anion Gap 9, Blood Urea Nitrogen 7, Creatinine 0.63, Estimat Glomerular Filtration Rate 107, BUN/Creatinine Ratio 11, Glucose Level 145H, Calcium Level 8.8, Corrected Calcium 9.3, Total Bilirubin 0.3, Aspartate Amino Transf (AST/SGOT) 12, Alanine Aminotransferase (ALT/SGPT) 11, Alkaline Phosphatase 65, Total Protein 6.0L, Albumin 3.4, Mycoplasma pneumoniae IgG Antibody 1:256H, Mycoplasma pneumoniae IgM Antibody <1:10 10/16/22 05:58: Glucometer 137H 10/16/22 10:51: Glucometer 144H 10/16/22 13:43: Blood Gas Puncture Site RR, Blood Gas Patient Temperature 37, Arterial Blood pH 7.36L, Arterial Blood Partial Pressure CO2 44, Arterial Blood Partial Pressure O2 59L, Arterial Blood HCO3 25, Arterial Blood Total CO2 26.1, Arterial Blood Oxygen Saturation 91L, Arterial Blood Base Excess 0.0, Kamar Test YES-POS, Blood Gas Ventilator Setting NO, Blood Gas Inspired Oxygen 2L 10/16/22 15:23: Glucometer 166H 10/16/22 20:05: Glucometer 167H 10/16/22 21:00: Vancomycin Level Trough 12.1 10/17/22 05:19: Glucometer 130H 10/17/22 05:21: White Blood Count 10.8, Red Blood Count 4.30, Hemoglobin 13.0, Hematocrit 39, Mean Corpuscular Volume 91, Mean Corpuscular Hemoglobin 30, Mean Corpuscular Hemoglobin Concent 33, Red Cell Distribution Width 13.0, Platelet Count 328, Mean Platelet Volume 10.8, Immature Granulocyte % (Auto) 1, Neutrophils (%) (Auto) 85H, Lymphocytes (%) (Auto) 11L, Monocytes (%) (Auto) 3, Eosinophils (%) (Auto) 0, Basophils (%) (Auto) 0, Neutrophils # (Auto) 9.1H, Lymphocytes # (Auto) 1.2, Monocytes # (Auto) 0.4, Eosinophils # (Auto) 0.0, Basophils # (Auto) 0.0, Immature Granulocyte # (Auto) 0.1, Sodium Level 140, Potassium Level 4.5, Chloride Level 109H, Carbon Dioxide Level 22, Anion Gap 9, Blood Urea Nitrogen 11, Creatinine 0.70, Estimat Glomerular Filtration Rate 104, BUN/Creatinine Ratio 16, Glucose Level 130H, Calcium Level 8.8, Corrected Calcium 9.3, Total Bilirubin 0.2, Aspartate Amino Transf (AST/SGOT) 14, Alanine Aminotransferase (ALT/SGPT) 12, Alkaline Phosphatase 59, Total Protein 5.9L, Albumin 3.4 10/17/22 11:33: Glucometer 112H Microbiology 10/15/22 MRSA Screen - Final, Complete MRSA not isolated 10/15/22 Blood Culture - Preliminary, Resulted No growth Pending Labs Microbiology Date/Time Source Procedure Growth Status 10/15/22 11:35 Nasal MRSA Screen - Final MRSA not isolated Complete 10/15/22 10:55 Peripheral Rt Ac Blood Culture - Preliminary No growth Resulted 10/15/22 10:45 Peripheral Right Wrist Blood Culture - Preliminary No growth Resulted 10/15/22 10:00 Sputum Expectorated Gram Stain - Final Complete 10/15/22 10:00 Sputum Culture - Final Usual upper respiratory shadia Complete Laboratory Tests 10/15/22 09:45: White Blood Count 10.7, Red Blood Count 4.61, Hemoglobin 13.9, Hematocrit 41, Mean Corpuscular Volume 88, Mean Corpuscular Hemoglobin 30, Mean Corpuscular Hemoglobin Concent 34, Red Cell Distribution Width 12.4, Platelet Count 360, Mean Platelet Volume 10.3, Immature Granulocyte % (Auto) 1, Neutrophils (%) (Auto) 69, Lymphocytes (%) (Auto) 21, Monocytes (%) (Auto) 8, Eosinophils (%) (Auto) 2, Basophils (%) (Auto) 0, Neutrophils # (Auto) 7.3, Lymphocytes # (Auto) 2.3, Monocytes # (Auto) 0.8, Eosinophils # (Auto) 0.2, Basophils # (Auto) 0.0, Immature Granulocyte # (Auto) 0.1, D-Dimer 0.32, Sodium Level 136, Potassium Level 4.3, Chloride Level 101, Carbon Dioxide Level 26, Anion Gap 9, Blood Urea Nitrogen 10, Creatinine 0.70, Estimat Glomerular Filtration Rate 104, BU N/Creatinine Ratio 14, Glucose Level 91, Calcium Level 9.0, Corrected Calcium 9.4, Total Bilirubin 0.4, Aspartate Amino Transf (AST/SGOT) 15, Alanine Aminotransferase (ALT/SGPT) 10, Alkaline Phosphatase 65, Troponin I < 0.028, B- Type Natriuretic Peptide 33.6, Total Protein 6.2, Albumin 3.5 10/15/22 10:10: Blood Gas Puncture Site RT RAD, Blood Gas Patient Temperature 36.7, Arterial Blood pH 7.37, Arterial Blood Partial Pressure CO2 53, Arterial Blood Partial Pressure O2 51, Arterial Blood HCO3 30, Arterial Blood Total CO2 31.5, Arterial Blood Oxygen Saturation 87, Arterial Blood Base Excess 4.9, Kamar Test YES-POS, Blood Gas Ventilator Setting NO, Blood Gas Inspired Oxygen ROOM AIR 10/15/22 10:55: Lactic Acid Level 0.64 10/15/22 11:29: Glucometer 103 10/15/22 11:30: Influenza Type A (RT-PCR) Not Detected, Influenza Type B (RT-PCR) Not Detected, SARS-CoV-2 RNA (RT-PCR) Not Detected 10/15/22 15:38: Glucometer 156 10/15/22 20:02: Glucometer 149 10/16/22 05:30: White Blood Count 9.3, Red Blood Count 4.38, Hemoglobin 13.2, Hematocrit 39, Mean Corpuscular Volume 89, Mean Corpuscular Hemoglobin 30, Mean Corpuscular Hemoglobin Concent 34, Red Cell Distribution Width 12.6, Platelet Count 348, Mean Platelet Volume 10.9, Immature Granulocyte % (Auto) 1, Neutrophils (%) (Auto) 86, Lymphocytes (%) (Auto) 12, Monocytes (%) (Auto) 2, Eosinophils (%) (Auto) 0, Basophils (%) (Auto) 0, Neutrophils # (Auto) 8.0, Lymphocytes # (Auto) 1.1, Monocytes # (Auto) 0.2, Eosinophils # (Auto) 0.0, Basophils # (Auto) 0.0, Immature Granulocyte # (Auto) 0.1, Sodium Level 140, Potassium Level 4.8, Chloride Level 107, Carbon Dioxide Level 24, Anion Gap 9, Blood Urea Nitrogen 7, Creatinine 0.63, Estimat Glomerular Filtration Rate 107, BUN/Creatinine Ratio 11, Glucose Level 145, Calcium Level 8.8, Corrected Calcium 9.3, Total Bilirubin 0.3, Aspartate Amino Transf (AST/SGOT) 12, Alanine Aminotransferase (ALT/SGPT) 11, Alkaline Phosphatase 65, Total Protein 6.0, Albumin 3.4, Mycoplasma pneumoniae IgG Antibody 1:256, Mycoplasma pneumoniae IgM Antibody <1:10 10/16/22 05:58: Glucometer 137 10/16/22 10:51: Glucometer 144 10/16/22 13:43: Blood Gas Puncture Site RR, Blood Gas Patient Temperature 37, Arterial Blood pH 7.36, Arterial Blood Partial Pressure CO2 44, Arterial Blood Partial Pressure O2 59, Arterial Blood HCO3 25, Arterial Blood Total CO2 26.1, Arterial Blood Oxygen Saturation 91, Arterial Blood Base Excess 0.0, Kamar Test YES-POS, Blood Gas Ventilator Setting NO, Blood Gas Inspired Oxygen 2L 10/16/22 15:23: Glucometer 166 10/16/22 20:05: Glucometer 167 10/16/22 21:00: Vancomycin Level Trough 12.1 10/17/22 05:19: Glucometer 130 10/17/22 05:21: White Blood Count 10.8, Red Blood Count 4.30, Hemoglobin 13.0, Hematocrit 39, Mean Corpuscular Volume 91, Mean Corpuscular Hemoglobin 30, Mean Corpuscular Hemoglobin Concent 33, Red Cell Distribution Width 13.0, Platelet Count 328, Mean Platelet Volume 10.8, Immature Granulocyte % (Auto) 1, Neutrophils (%) (Auto) 85, Lymphocytes (%) (Auto) 11, Monocytes (%) (Auto) 3, Eosinophils (%) (Auto) 0, Basophils (%) (Auto) 0, Neutrophils # (Auto) 9.1, Lymphocytes # (Auto) 1.2, Monocytes # (Auto) 0.4, Eosinophils # (Auto) 0.0, Basophils # (Auto) 0.0, Immature Granulocyte # (Auto) 0.1, Sodium Level 140, Potassium Level 4.5, Chl oride Level 109, Carbon Dioxide Level 22, Anion Gap 9, Blood Urea Nitrogen 11, Creatinine 0.70, Estimat Glomerular Filtration Rate 104, BUN/Creatinine Ratio 16, Glucose Level 130, Calcium Level 8.8, Corrected Calcium 9.3, Total Bilirubin 0.2, Aspartate Amino Transf (AST/SGOT) 14, Alanine Aminotransferase (ALT/SGPT) 12, Alkaline Phosphatase 59, Total Protein 5.9, Albumin 3.4 10/17/22 11:33: Glucometer 112 Discharge Home Medications: Active Scripts Active Amox Tr-K Clv 875-125 mg Tab (Amoxicillin/Potassium Clav) 875 Mg-125 Mg Tablet 1 Each PO BID Advair 250-50 Diskus (Fluticasone/Salmeterol) 250 Mcg-50 Mcg/Dose Blst.w.dev 1 Each IH BID Prednisone 10 Mg Tab.ds.pk 10 Mg PO DAILY Take 6 tabs(60mg)daily,decrease by 1 tab(10MG)daily. Montelukast Sodium 10 Mg Tablet 10 Mg PO HS Tessalon Perles (Benzonatate) 100 Mg Capsule 200 Mg PO TID Reported Loperamide (Loperamide HCl) 2 Mg Tablet Unknown Dose PO DAILY TAKES 67 TABS ONCE DAILY Culturelle (Lactobacillus Rhamnosus GG) 10 Billion Cell Capsule 1 Each PO BID Acid Patient Service Associate (FAMOTIDINE) (Famotidine) 20 Mg Tablet 20 Mg PO BID Esomeprazole Magnesium 20 Mg Capsule.dr 20 Mg PO BID Depo-Estradiol (Estradiol Cypionate) 5 Mg/Ml Inj 1 Ml IM MONTHLY Pregabalin 100 Mg Capsule 100 Mg PO TID Escitalopram Oxalate 20 Mg Tablet 20 Mg PO DAILY Trazodone HCl 150 Mg Tablet 300 Mg PO HS TAKES 2 (150MG) TABS Bupropion HCl Sr (Bupropion HCl) 150 Mg Tablet.er 150 Mg PO BID Gabapentin 800 Mg Tablet 800 Mg PO 1800,2200 Methocarbamol 750 Mg Tablet 750 Mg PO Q4H PRN Cyanocobalamin Injection (Cyanocobalamin) 1,000 Mcg/Ml Inj 1 Ml IM MONTHLY Ondansetron HCl 8 Mg Tablet 8 Mg PO Q8H PRN Cefdinir 300 Mg Capsule 300 Mg PO BID FILLED 10-10-2022 #14/ DAY SUPPLY Fluconazole 100 Mg Tablet 100 Mg PO Q48H FILLED 10-10-2022 #10 DAY SUPPLY Instructions to patient/family Please see electronic discharge instructions given to patient. Diagnosis/Problems Diagnosis/Problems (1) Pulmonary infiltrates LASHAUN MEJIA DO Oct 17, 2022 11:43
[2022-10-17] MEDS: VANCOMYCIN 1500MG/300ML PREMIX IV SCH (11:46)
--- NOTE | 2022-10-17 11:57 | Progress Note ---
SURINDER SANCHEZ 10/17/22 1157: Progress Note Kanchan Loera is a 52yo F who presented as a direct admission from Dr Mejia's clinic with chief complaint of fever, cough, and shortness of breath for approximately 2 weeks. HPI from admission: "Kanchan Loera is a 52yo F with past medical history of prediabetes, GERD, short bowel syndrome s/p right hemicolectomy, and depression who presents as a direct admission from Dr Mejia's clinic. She has a two week history of fever/chills, night sweats, shortness of breath, and cough. She has also experienced some mild nausea with one reported episode of emesis. Her and her do not recall being around any sick contacts. She took amoxicillin for [address] Mejia in clinic and being switched to cefdinir. She reports some mild improvement in her symptoms since starting the cefdinir. She had an xray as an outpatient last which showed 5 lobe interstitial opacities which will require further workup. Her cough is present during my interview and is productive of some light colored sputum. She does not have conversational dyspnea but has noted some shortness of breath over the last two weeks. Her fever has been under control since switching abx. She feels fatigued. Denies N/V today. Has chronic diarrhea related to short bowel syndrome from her R hemicolectomy. Denies any chest pain/ palpitations. Denies any peripheral edema." She was found to have acute hypoxic respiratory failure and required oxygen supplementation via nasal cannula. A recent CXR prior to admission showed 5 lobe interstitial opacities with no focal consolidation. She had recently taken abx for presumed community aquired PNA with some minimal improvement of her symptoms. She remained afebrile with normal WBC count throughout her admission. A D dimer was level was normal with CTA showing no evidence of PE. The CTA did show infiltrates and R lower lobe consolidation. She also had a 7mm nodule that will need outpatient CT follow up. An echocardiogram did not reveal any congestive HF causes for her shortness of breath and cough. She was started on IV abx for broad spectrum pneumonia coverage. Blood cultures and sputum cultures were collected but she had already been on abx as an outpatient prior. Sputum grew normal respiratory shadia. She was treated with decadron, albuterol, and a pulm consult was ordered. Viral panel for flu a, flu b, and covid were negative. Mycoplasma titer was sent out and is pending results. She was given lovenox for DVT ppx. ABG showed respiratory acidosis and follow up ABG the following day was improved with less CO2 retention and better oxygen level. A home O2 study was done as well as overnight O2 saturation. She will be discharged 10/17 with close follow up with Dr Mejia as well as a follow up with Dr Moraes who has been managing her PHIL. She will work on finding a solution to her discomfort with CPAP masks as underlying untreated PHIL is likely contributing to her CO2 retention and respiratory disease. She will be weaned off IV steroids and given an inhaled corticosteroid per pulm. HEATHER MEJIA DO 10/18/22 0433: Supervisory-Addendum Brief Verification & Attestation Participated in pt care: history, MDM, physical Personally performed: exam, history, MDM, supervision of care Care discussed with: Medical Student Procedures: n/a Results interpretation: Verified all documentation Verification and Attestation of Medical Student E/M Service A medical student performed and documented this service in my presence. I reviewed and verified all information documented by the medical student and made modifications to such information, when appropriate. I personally performed the physical exam and medical decision making. Heather Mjeia, Oct 18, 2022,04:33 SURINDER SANCHEZ Oct 17, 2022 11:57 HEATHER MEJIA DO Oct 18, 2022 04:33
[2022-10-17 12:02] VITALS: BP 120/77
[2022-10-17 14:10] VITALS: BP 120/77
== END 2022-10-17 14:10 | disposition home or self-care (01) | DRG 193 ==
LOC: 4TH 08:08 → OBSVTOIN 10-16 11:00
PROVIDERS: ADMIT Internal Medicine; ATTEND Internal Medicine
DX: J18.9 Pneumonia, unspecified organism (principal); J96.01 Acute respiratory failure with hypoxia; J96.02 Acute respiratory failure with hypercapnia; K91.2 Postsurgical malabsorption, not elsewhere classified; E87.29 Other acidosis; R73.03 Prediabetes; K21.9 Gastro-esophageal reflux disease without esophagitis; R19.7 Diarrhea, unspecified; F32.A Depression, unspecified; Z20.822 Contact with and (suspected) exposure to COVID-19; G47.33 Obstructive sleep apnea (adult) (pediatric); Z90.49 Acquired absence of other specified parts of digestive tract; Z79.899 Other long term (current) drug therapy; Z88.8 Allergy status to other drugs, medicaments and biological substances
CPT/HCPCS: 36415; 36600; 71045; 71275; 80053; 80202; 82805; 82947; 83605; 83880; 84484; 85025; 85379; 86738; 87040; 87070; 87081; 87205; 87636; 93306; 94640; 94760; 94761; G0378

== ENCOUNTER → 2022-12-04 | Outpatient (CLI) | payer BC ==
[~2022-12-04] MED LIST changes: -ACETAMINOPHEN 325 MG TABLET PO PRN; +AMOX1TAB12 PO; -ANTACID SUSP 30 ML UDC (MYLANTA) PO PRN; +BENZ100C18 PO; -BISACODYL 10 MG SUPPOSITORY PR PRN; +BUPR-105 PO; -CALCIUM CARBONATE 500 MG CHEW TABLET PO PRN; +CEFD300C3 PO; +CNC1KV IM; -ENOXAPARIN 40 MG/0.4 ML (LOVENOX) SYR SC SCH; +ESCI20TA39 PO; +ESOM20CA37 PO; +EST5V5 IM; +FAMO-356 PO; +FLUC100T10 PO; +FLUT1DIS26 IH; +GABA800T10 PO; -HYDROmorphone 2 MG/ML VIAL (DILAUDID) IV PRN; +LACT1CAP39 PO; -LACTULOSE SYRUP 10GM/15ML (ENULOSE) 30ML UDC PO PRN; +LOPE2TAB34 PO; -MELATONIN 3 MG TABLET PO PRN; +METH-732 PO; -MILK OF MAGNESIA 400 MG/5 ML 30 ML UDC PO PRN; +MONT-40 PO; +ONDA-106 PO; -ONDANSETRON 4 MG (ZOFRAN) ORAL DISSOLVE TAB PO PRN; -ONDANSETRON 4 MG/2 ML (SDV) Z0FRAN IV PRN; -PHARMACY TO DOSE IV SCH; -PIPERACILLIN SODIUM/TAZOBACTAM 4.5 GM in NS (IVPB) 100 ML 100 ML IV ONE; +PRED10TA22 PO; +PREG100C55 PO; +TRAZ150T72 PO; -diphenhydrAMINE 25 MG TAB (BENADRYL) PO PRN; -diphenhydrAMINE 50 MG/ML INJ (BENADRYL) IVP PRN; -guaiFENesin/CODEINE (ROBITUSSIN AC) 10ML UDC PO PRN; -polyethylene glycoL POWDER 17 GM (MIRALAX) PACK PO PRN
--- NOTE | 2022-12-04 17:06 | Diagnostic Imaging Report ---
INDICATION: Pneumonia. TIME OF EXAM: 3:09 PM. COMPARISON: Correlation is made with prior chest 10/10/2022. FINDINGS: Heart size normal. Lungs appear to be fairly clear. No infiltrates are detected. No effusion or pneumothorax is detected. IMPRESSION: No acute cardiopulmonary process is detected. Dictated by: Dictated on workstation # [id number]
== END ==
LOC: RAD 14:51
PROVIDERS: ATTEND Internal Medicine Critical Care Medicine
DX: J18.9 Pneumonia, unspecified organism (principal); J45.909 Unspecified asthma, uncomplicated; J96.11 Chronic respiratory failure with hypoxia
CPT/HCPCS: 71046